=== PATIENT | female | born 1965 | race Caucasian/White ===

== ENCOUNTER 2022-10-08 14:31 | Outpatient (CLI) | payer BC | END 2022-10-08 14:32 | disposition home or self-care (01) | LOC: CSHMAMMO 14:31 | PROVIDERS: ATTEND Physician Assistant | DX: Z12.31 Encounter for screening mammogram for malignant neoplasm of breast (principal) | CPT/HCPCS: 77063; 77067 ==

== ENCOUNTER 2023-08-16 21:17 | Inpatient (IN) | payer BC ==
[2023-08-16] MEDS ORDERED: Benzonatate 100 MG CAP ONE (22:04)
[2023-08-16] MEDS ORDERED: Acetaminophen 500 MG TAB ONE (22:04)
[2023-08-16] MEDS ORDERED: Dexamethasone 10 MG/ML VIAL ONE (22:04)
[2023-08-16] MEDS ORDERED: Ketorolac Tromethamine 30 MG (1 mL) VIAL ONE (22:04)
[2023-08-16] MEDS ORDERED: Ipratropium/Albuterol 3 ML NEB ONE ×2 (22:06→23:26)
[2023-08-16 23:04] LABS: #Monocytes 0.6 10x3/uL (0.0-1.1); #Neutrophils 5.1 10x3/uL (1.5-8.4); %Basophils 0.3 % (0.0-2.0); %Eosinophils 0.1 % (0.0-6.0); %Lymphocytes 40.9 % (18.0-47.0); %Neutrophils 52.5 % (40.0-75.0); Hematocrit 36.4 % (34.9-44.5); Hemoglobin 12.1 g/dL (12.0-15.5); Mean Corpuscular HGB CONC 33.2 g/dL (32.0-36.0); Mean Corpuscular Hemoglobin 29.1 pg (27.0-33.0); Mean Corpuscular Volume 87.5 fl (81.6-98.3); Mean Platelet Volume 8.4 fl (7.4-10.4); Platelet Count 602 10x3/uL (150-450); RBC Distribution Width 14.6 % (11.5-14.5); Red Blood Cell (RBC) Count 4.16 10x6/uL (3.90-5.03); White Blood Cell (WBC) Count 9.7 10x3/uL (3.5-10.5)
[2023-08-16 23:11] LABS: Troponin I Less than 0.010 ng/mL (< 0.028)
[2023-08-16 23:12] LABS: AST (SGOT) 17 U/L (5-34); Albumin 3.7 g/dL (3.5-5.0); Alkaline Phosphatase 82 U/L (40-110); Anion Gap 15 mmol/L (10-20); BUN (Urea Nitrogen) 8 mg/dL (9.8-20.1); Bilirubin, Total 0.4 mg/dL (0.2-1.2); Calc. Creatinine Clearance 0 mL/min (70-130); Calcium 8.9 mg/dL (7.8-10.44); Carbon Dioxide 28 mmol/L (22-29); Chloride 99 mmol/L (98-107); Estimated GFR 87; Globulin 3.5 g/dL (2.4-3.5); Glucose 131 mg/dL (70-105); Potassium 4.3 mmol/L (3.5-5.1); Sodium 138 mmol/L (136-145)
[2023-08-16 23:13] LABS: ALT (SGPT) 16 U/L (8-55); Lipase 30 U/L (8-78); Protein, Total 7.2 g/dL (6.0-8.3)
[2023-08-16] MEDS ORDERED: Albuterol 2.5 MG (3 mL) NEB ONE (23:29)
[2023-08-16 23:40] LABS: SARS-CoV-2 NAA Rapid Test Not Detected (NotDetected)
[2023-08-17] MEDS ORDERED: cefTRIAXone (ROCEPHIN) 2 GM VIAL ONE (00:23)
[2023-08-17] MEDS ORDERED: Azithromycin 500 MG VIAL ONE (00:23)
[2023-08-17] MEDS ORDERED: Glucagon 1 MG/ML KIT IM PRN (00:58)
[2023-08-17] MEDS ORDERED: Dextrose 50% Abboject 50 ML SYRINGE SLOW IVP PRN (00:58)
[2023-08-17] MEDS ORDERED: HumaLOG 300 UNITS/3 ML VIAL SC PRN (00:58)
[2023-08-17] MEDS ORDERED: Dextrose 5% in Water 1,000 ML IV PRN (00:58)
[2023-08-17] MEDS ORDERED: Ondansetron PF 4 MG/2 ML Vial ONE (01:47)
[2023-08-17] MEDS ORDERED: Ketorolac Tromethamine 30 MG (1 mL) VIAL ONE (01:48)
[2023-08-17 03:33] LABS: #Monocytes 0.1 10x3/uL (0.0-1.1); #Neutrophils 5.7 10x3/uL (1.5-8.4); %Basophils 0.2 % (0.0-2.0); %Lymphocytes 10.8 % (18.0-47.0); %Monocytes 0.9 % (0.0-10.0); %Neutrophils 87.8 % (40.0-75.0); Hematocrit 34.2 % (34.9-44.5); Hemoglobin 11.3 g/dL (12.0-15.5); Mean Corpuscular Hemoglobin 28.9 pg (27.0-33.0); Mean Corpuscular Volume 87.5 fl (81.6-98.3); Mean Platelet Volume 8.4 fl (7.4-10.4); Platelet Count 588 10x3/uL (150-450); Red Blood Cell (RBC) Count 3.91 10x6/uL (3.90-5.03); White Blood Cell (WBC) Count 6.5 10x3/uL (3.5-10.5)
[2023-08-17 03:38] LABS: Clarity Clear (Clear)
[2023-08-17 03:39] LABS: Bilirubin Negative (Negative); Blood, Urine Negative (Negative); Glucose, Urine (Dipstick) Negative (Negative); Ketone, Urine Negative (Negative); Leukocyte Negative (Negative); Nitrite Negative (Negative); Protein, Urine (Dipstick) 100 mg/dl (Neg-Trace); Urobilinogen Normal mg/dL (Less than 2)
[2023-08-17 03:41] LABS: Bacteria/HPF Rare-Few HPF (None Seen); CAUTI Indications for Culture Dysuria,urgency,freq; RBC/HPF 0-3 HPF (0-3); Squamous Epithelial 0-3 HPF (0-3); WBC/HPF 0-3 HPF (0-3)
[2023-08-17 03:42] LABS: Urine Culture Reflex No No
[2023-08-17 03:44] LABS: Anion Gap 17 mmol/L (10-20); BUN (Urea Nitrogen) 9 mg/dL (9.8-20.1); Calc. Creatinine Clearance 0 mL/min (70-130); Calcium 8.5 mg/dL (7.8-10.44); Carbon Dioxide 23 mmol/L (22-29); Chloride 103 mmol/L (98-107); Estimated GFR 93; Glucose 203 mg/dL (70-105); Magnesium 1.8 mg/dL (1.6-2.6); Potassium 3.9 mmol/L (3.5-5.1); Sodium 139 mmol/L (136-145)
[2023-08-17] MEDS ORDERED: Morphine 2 MG/ML VIAL SLOW IVP SCH (04:00)
[2023-08-17] MEDS: Sodium Chloride 0.9% 1,000 ML IV SCH (04:00)
[2023-08-17 04:54] VITALS: BMI 46.6
[2023-08-17] MEDS ORDERED: FLU VACC QS2023-24(6MOS UP)/PF 60 MCG/0.5 ML SYRINGE IM ONE (09:00)
[2023-08-17] MEDS: Enoxaparin 40 MG (0.4 mL) SYRINGE SC SCH (09:59)
[2023-08-17] MEDS: metFORMIN 500 MG TAB PO SCH ×3 (09:59→21:53)
[2023-08-17] MEDS: Lantus 1000 UNITS/10 ML VIAL SC SCH (10:00)
[2023-08-17] MEDS: traMADol HCl 50 MG TAB PO PRN ×3 (10:42→23:59)
[2023-08-17] MEDS: Promethazine HCl 12.5 MG in Sodium Chloride 0.9% 50 ML IVPB PRN (10:46)
[2023-08-17] MEDS: Benzonatate 100 MG CAP PO PRN (16:20)
[2023-08-17] MEDS: Albuterol 2.5 MG (3 mL) NEB NEB PRN (20:45)
[2023-08-17] MEDS: QUEtiapine 25 MG TAB PO SCH (21:53)
[2023-08-17] MEDS: Clopidogrel Bisulfate 75 MG TAB PO SCH (21:53)
[2023-08-17] MEDS: Levothyroxine Sodium 100 MCG TAB PO SCH (21:53)
[2023-08-17] MEDS: Venlafaxine HCl XR 75 MG CAP PO SCH (21:53)
[2023-08-17] MEDS: Atorvastatin Calcium 40 MG TAB PO SCH (21:53)
[2023-08-17] MEDS: Aripiprazole 10 MG TAB PO SCH (21:54)
[2023-08-17] MEDS: cefTRIAXone\\ROCEPHIN 2 GM in Sodium Chloride 0.9% 100 ML IVPB SCH (23:58)
[2023-08-18] MEDS: Azithromycin 500 MG in Sodium Chloride 0.9% 250 ML 250 ML IVPB SCH (00:53)
[2023-08-18] MEDS: Benzonatate 100 MG CAP PO PRN ×3 (00:53→15:14)
[2023-08-18 04:56] LABS: #Monocytes 0.8 10x3/uL (0.0-1.1); #Neutrophils 4.5 10x3/uL (1.5-8.4); %Basophils 0.2 % (0.0-2.0); %Eosinophils 0.2 % (0.0-6.0); %Lymphocytes 41.4 % (18.0-47.0); %Monocytes 8.7 % (0.0-10.0); %Neutrophils 49.1 % (40.0-75.0); Hematocrit 30.3 % (34.9-44.5); Mean Corpuscular Hemoglobin 29.6 pg (27.0-33.0); Mean Corpuscular Volume 89.6 fl (81.6-98.3); Mean Platelet Volume 8.4 fl (7.4-10.4); Platelet Count 484 10x3/uL (150-450); RBC Distribution Width 15.6 % (11.5-14.5); Red Blood Cell (RBC) Count 3.38 10x6/uL (3.90-5.03); White Blood Cell (WBC) Count 9.2 10x3/uL (3.5-10.5)
[2023-08-18 05:03] LABS: Anion Gap 11 mmol/L (10-20); BUN (Urea Nitrogen) 9 mg/dL (9.8-20.1); Calc. Creatinine Clearance 158 mL/min (70-130); Calcium 8.1 mg/dL (7.8-10.44); Carbon Dioxide 27 mmol/L (22-29); Chloride 106 mmol/L (98-107); Estimated GFR 100; Glucose 90 mg/dL (70-105); Potassium 4.3 mmol/L (3.5-5.1); Sodium 140 mmol/L (136-145)
[2023-08-18] MEDS: metFORMIN 500 MG TAB PO SCH ×3 (08:49→20:05)
[2023-08-18] MEDS: Enoxaparin 40 MG (0.4 mL) SYRINGE SC SCH (08:49)
[2023-08-18] MEDS: traMADol HCl 50 MG TAB PO PRN ×2 (08:49→20:00)
[2023-08-18] MEDS: Lantus 1000 UNITS/10 ML VIAL SC SCH (08:51)
[2023-08-18] MEDS ORDERED: guaiFENesin ER 600 MG TAB PO SCH (14:00)
[2023-08-18] MEDS: Acetaminophen 325 MG TAB PO PRN (15:14)
[2023-08-18] MEDS: Sodium Chloride 0.9% 1,000 ML IV SCH ×2 (15:16)
[2023-08-18] MEDS: Promethazine HCl 12.5 MG in Sodium Chloride 0.9% 50 ML IVPB PRN (16:11)
[2023-08-18] MEDS: Ondansetron PF 4 MG/2 ML Vial IVP PRN (18:30)
[2023-08-18] MEDS: Levothyroxine Sodium 100 MCG TAB PO SCH (20:04)
[2023-08-18] MEDS: Clopidogrel Bisulfate 75 MG TAB PO SCH (20:04)
[2023-08-18] MEDS: Atorvastatin Calcium 40 MG TAB PO SCH (20:04)
[2023-08-18] MEDS: Venlafaxine HCl XR 75 MG CAP PO SCH (20:04)
[2023-08-18] MEDS: QUEtiapine 25 MG TAB PO SCH (20:04)
[2023-08-18] MEDS: Aripiprazole 10 MG TAB PO SCH (20:05)
[2023-08-18] MEDS ORDERED: Diazepam 5 MG TAB PO SCH (20:15)
[2023-08-18] MEDS: cefTRIAXone\\ROCEPHIN 2 GM in Sodium Chloride 0.9% 100 ML IVPB SCH (23:40)
[2023-08-18] MEDS: guaiFENesin ER 600 MG TAB PO SCH (23:41)
[2023-08-19] MEDS: Azithromycin 500 MG in Sodium Chloride 0.9% 250 ML 250 ML IVPB SCH ×2 (00:03→22:52)
[2023-08-19] MEDS: Ondansetron PF 4 MG/2 ML Vial IVP PRN ×3 (00:03→18:12)
[2023-08-19] MEDS: Lantus 1000 UNITS/10 ML VIAL SC SCH (09:00)
[2023-08-19] MEDS: traMADol HCl 50 MG TAB PO PRN (10:43)
[2023-08-19] MEDS: guaiFENesin ER 600 MG TAB PO SCH ×2 (10:43→22:44)
[2023-08-19] MEDS: Benzonatate 100 MG CAP PO PRN ×2 (10:45→22:43)
[2023-08-19] MEDS: metFORMIN 500 MG TAB PO SCH ×3 (10:45→20:27)
[2023-08-19] MEDS: Enoxaparin 40 MG (0.4 mL) SYRINGE SC SCH (10:45)
[2023-08-19] MEDS: Sodium Chloride 0.9% 1,000 ML IV SCH ×2 (14:00→22:52)
[2023-08-19] MEDS: Albuterol 2.5 MG (3 mL) NEB NEB PRN (14:50)
[2023-08-19] MEDS: Atorvastatin Calcium 40 MG TAB PO SCH (20:26)
[2023-08-19] MEDS: QUEtiapine 25 MG TAB PO SCH (20:27)
[2023-08-19] MEDS: Diazepam 5 MG TAB PO PRN (20:27)
[2023-08-19] MEDS: Clopidogrel Bisulfate 75 MG TAB PO SCH (20:27)
[2023-08-19] MEDS: Venlafaxine HCl XR 75 MG CAP PO SCH (20:27)
[2023-08-19] MEDS: Levothyroxine Sodium 100 MCG TAB PO SCH (20:27)
[2023-08-19] MEDS: Promethazine HCl 12.5 MG in Sodium Chloride 0.9% 50 ML IVPB PRN (21:31)
[2023-08-19] MEDS: Aripiprazole 10 MG TAB PO SCH (22:43)
[2023-08-20] MEDS: cefTRIAXone\\ROCEPHIN 2 GM in Sodium Chloride 0.9% 100 ML IVPB SCH (00:21)
[2023-08-20 04:01] LABS: #Basophils 0.1 10x3/uL (0.0-0.2); #Eosinphils 0.1 10x3/uL (0.0-0.5); #Monocytes 0.7 10x3/uL (0.0-1.1); #Neutrophils 3.1 10x3/uL (1.5-8.4); %Basophils 0.7 % (0.0-2.0); %Eosinophils 0.9 % (0.0-6.0); %Lymphocytes 52.7 % (18.0-47.0); %Monocytes 8.1 % (0.0-10.0); %Neutrophils 37.5 % (40.0-75.0); Hematocrit 32.7 % (34.9-44.5); Hemoglobin 10.4 g/dL (12.0-15.5); Mean Corpuscular HGB CONC 31.8 g/dL (32.0-36.0); Mean Corpuscular Hemoglobin 29.5 pg (27.0-33.0); Mean Corpuscular Volume 92.9 fl (81.6-98.3); Mean Platelet Volume 8.4 fl (7.4-10.4); Platelet Count 457 10x3/uL (150-450); RBC Distribution Width 15.4 % (11.5-14.5); Red Blood Cell (RBC) Count 3.52 10x6/uL (3.90-5.03); White Blood Cell (WBC) Count 8.2 10x3/uL (3.5-10.5)
[2023-08-20 04:17] LABS: Anion Gap 10 mmol/L (10-20); BUN (Urea Nitrogen) 5 mg/dL (9.8-20.1); Calc. Creatinine Clearance 147 mL/min (70-130); Calcium 8.2 mg/dL (7.8-10.44); Carbon Dioxide 28 mmol/L (22-29); Chloride 107 mmol/L (98-107); Estimated GFR 95; Glucose 122 mg/dL (70-105); Magnesium 1.5 mg/dL (1.6-2.6); Potassium 3.7 mmol/L (3.5-5.1); Sodium 141 mmol/L (136-145)
[2023-08-20] MEDS: metFORMIN 500 MG TAB PO SCH ×3 (08:41→21:47)
[2023-08-20] MEDS: guaiFENesin ER 600 MG TAB PO SCH ×2 (08:41→21:46)
[2023-08-20] MEDS: Enoxaparin 40 MG (0.4 mL) SYRINGE SC SCH (08:42)
[2023-08-20] MEDS: Benzonatate 100 MG CAP PO PRN (08:42)
[2023-08-20] MEDS: Lantus 1000 UNITS/10 ML VIAL SC SCH (08:54)
[2023-08-20] MEDS: Ondansetron PF 4 MG/2 ML Vial IVP PRN (13:02)
[2023-08-20] MEDS: traMADol HCl 50 MG TAB PO PRN (13:08)
[2023-08-20] MEDS ORDERED: Magnesium 2 GM/50 ML(in water) 2 GM in Premix 1 BAG IVPB SCH (14:00)
[2023-08-20] MEDS ORDERED: Magnesium Sulfate/D5W 1 GM in Premix 1 BAG IVPB SCH (15:00)
[2023-08-20] MEDS: Clopidogrel Bisulfate 75 MG TAB PO SCH (21:46)
[2023-08-20] MEDS: QUEtiapine 25 MG TAB PO SCH (21:46)
[2023-08-20] MEDS: Atorvastatin Calcium 40 MG TAB PO SCH (21:47)
[2023-08-20] MEDS: Venlafaxine HCl XR 75 MG CAP PO SCH (21:47)
[2023-08-20] MEDS: Aripiprazole 10 MG TAB PO SCH (21:47)
[2023-08-20] MEDS: Levothyroxine Sodium 100 MCG TAB PO SCH (21:48)
[2023-08-20] MEDS: Sodium Chloride 0.9% 1,000 ML IV SCH (22:38)
[2023-08-20] MEDS: Azithromycin 500 MG in Sodium Chloride 0.9% 250 ML 250 ML IVPB SCH (22:40)
[2023-08-21] MEDS: cefTRIAXone\\ROCEPHIN 2 GM in Sodium Chloride 0.9% 100 ML IVPB SCH ×2 (00:02→23:08)
[2023-08-21] MEDS: Amlodipine 5 MG TAB PO SCH (08:43)
[2023-08-21] MEDS: guaiFENesin ER 600 MG TAB PO SCH ×2 (08:43→20:10)
[2023-08-21] MEDS: metFORMIN 500 MG TAB PO SCH ×3 (08:43→20:09)
[2023-08-21] MEDS: Enoxaparin 40 MG (0.4 mL) SYRINGE SC SCH (08:44)
[2023-08-21] MEDS: Lantus 1000 UNITS/10 ML VIAL SC SCH (08:44)
[2023-08-21] MEDS: Benzonatate 100 MG CAP PO PRN ×2 (08:48→20:24)
[2023-08-21 09:07] LABS: #Basophils 0.1 10x3/uL (0.0-0.2); #Eosinphils 0.1 10x3/uL (0.0-0.5); #Monocytes 0.7 10x3/uL (0.0-1.1); %Basophils 0.7 % (0.0-2.0); %Eosinophils 1.3 % (0.0-6.0); %Lymphocytes 52.4 % (18.0-47.0); %Monocytes 8.9 % (0.0-10.0); %Neutrophils 36.5 % (40.0-75.0); Hemoglobin 10.7 g/dL (12.0-15.5); Mean Corpuscular HGB CONC 32.4 g/dL (32.0-36.0); Mean Corpuscular Hemoglobin 29.4 pg (27.0-33.0); Mean Corpuscular Volume 90.7 fl (81.6-98.3); Mean Platelet Volume 8.7 fl (7.4-10.4); Platelet Count 458 10x3/uL (150-450); RBC Distribution Width 15.3 % (11.5-14.5); Red Blood Cell (RBC) Count 3.64 10x6/uL (3.90-5.03); White Blood Cell (WBC) Count 8.3 10x3/uL (3.5-10.5)
[2023-08-21 09:33] LABS: Anion Gap 12 mmol/L (10-20); BUN (Urea Nitrogen) 4 mg/dL (9.8-20.1); Calc. Creatinine Clearance 165 mL/min (70-130); Calcium 8.2 mg/dL (7.8-10.44); Carbon Dioxide 27 mmol/L (22-29); Chloride 107 mmol/L (98-107); Estimated GFR 101; Glucose 102 mg/dL (70-105); Potassium 3.9 mmol/L (3.5-5.1); Sodium 142 mmol/L (136-145)
[2023-08-21] MEDS: Ondansetron PF 4 MG/2 ML Vial IVP PRN (09:38)
[2023-08-21] MEDS: traMADol HCl 50 MG TAB PO PRN (09:43)
[2023-08-21] MEDS: Promethazine HCl 12.5 MG in Sodium Chloride 0.9% 50 ML IVPB PRN ×2 (11:15→20:19)
[2023-08-21] MEDS: Diazepam 5 MG TAB PO PRN (16:06)
[2023-08-21] MEDS: Atorvastatin Calcium 40 MG TAB PO SCH (20:09)
[2023-08-21] MEDS: Clopidogrel Bisulfate 75 MG TAB PO SCH (20:09)
[2023-08-21] MEDS: Acetaminophen 325 MG TAB PO PRN (20:09)
[2023-08-21] MEDS: Levothyroxine Sodium 100 MCG TAB PO SCH (20:10)
[2023-08-21] MEDS: Venlafaxine HCl XR 75 MG CAP PO SCH (20:10)
[2023-08-21] MEDS: QUEtiapine 25 MG TAB PO SCH (20:10)
[2023-08-21] MEDS: Aripiprazole 10 MG TAB PO SCH (20:14)
[2023-08-21] MEDS: Sodium Chloride 0.9% 1,000 ML IV SCH (20:24)
[2023-08-22] MEDS: Azithromycin 500 MG in Sodium Chloride 0.9% 250 ML 250 ML IVPB SCH (00:28)
[2023-08-22 03:54] LABS: #Eosinphils 0.1 10x3/uL (0.0-0.5); #Monocytes 0.8 10x3/uL (0.0-1.1); #Neutrophils 3.9 10x3/uL (1.5-8.4); %Basophils 0.5 % (0.0-2.0); %Eosinophils 1.3 % (0.0-6.0); %Lymphocytes 44.2 % (18.0-47.0); %Neutrophils 44.9 % (40.0-75.0); Hematocrit 34.7 % (34.9-44.5); Hemoglobin 11.4 g/dL (12.0-15.5); Mean Corpuscular HGB CONC 32.9 g/dL (32.0-36.0); Mean Corpuscular Hemoglobin 30.2 pg (27.0-33.0); Mean Platelet Volume 8.6 fl (7.4-10.4); Platelet Count 439 10x3/uL (150-450); RBC Distribution Width 15.1 % (11.5-14.5); Red Blood Cell (RBC) Count 3.77 10x6/uL (3.90-5.03); White Blood Cell (WBC) Count 8.7 10x3/uL (3.5-10.5)
[2023-08-22 04:09] LABS: Anion Gap 9 mmol/L (10-20); BUN (Urea Nitrogen) 4 mg/dL (9.8-20.1); Calc. Creatinine Clearance 158 mL/min (70-130); Calcium 8.5 mg/dL (7.8-10.44); Carbon Dioxide 31 mmol/L (22-29); Chloride 107 mmol/L (98-107); Estimated GFR 100; Glucose 90 mg/dL (70-105); Potassium 3.8 mmol/L (3.5-5.1); Sodium 143 mmol/L (136-145)
[2023-08-22] MEDS: Enoxaparin 40 MG (0.4 mL) SYRINGE SC SCH (09:04)
[2023-08-22] MEDS: metFORMIN 500 MG TAB PO SCH ×2 (09:04→15:19)
[2023-08-22] MEDS: Amlodipine 5 MG TAB PO SCH (09:04)
[2023-08-22] MEDS: Lantus 1000 UNITS/10 ML VIAL SC SCH (09:04)
[2023-08-22] MEDS: Diazepam 5 MG TAB PO PRN (09:04)
[2023-08-22] MEDS: guaiFENesin ER 600 MG TAB PO SCH (09:04)
[2023-08-22 14:07] VITALS: BP 140/63; TEMP 97.7
== END 2023-08-22 16:57 | disposition home or self-care (01) | DRG 193 ==
LOC: CSHERS 21:17 → CSHTELE 08-17 00:10
PROVIDERS: ADMIT Family Medicine; ATTEND Internal Medicine
PROC: 5A09357 Assistance with Respiratory Ventilation, Less than 24 Consecutive Hours, Continuous Positive Airway Pressure (ICD-10-PCS; principal; 2023-08-17)
DX: J18.9 Pneumonia, unspecified organism (principal); J96.01 Acute respiratory failure with hypoxia; Z68.42 Body mass index [BMI] 45.0-49.9, adult; Z88.8 Allergy status to other drugs, medicaments and biological substances; Z79.899 Other long term (current) drug therapy; Z79.84 Long term (current) use of oral hypoglycemic drugs; E78.00 Pure hypercholesterolemia, unspecified; E11.9 Type 2 diabetes mellitus without complications; Z90.49 Acquired absence of other specified parts of digestive tract; F32.A Depression, unspecified; F17.210 Nicotine dependence, cigarettes, uncomplicated; G47.33 Obstructive sleep apnea (adult) (pediatric); E03.9 Hypothyroidism, unspecified; Z82.49 Family history of ischemic heart disease and other diseases of the circulatory system; Z11.52 Encounter for screening for COVID-19; E66.01 Morbid (severe) obesity due to excess calories; F39 Unspecified mood [affective] disorder; Z79.4 Long term (current) use of insulin
CPT/HCPCS: 36415; 36416; 71045; 80048; 80053; 81001; 83605; 83690; 83735; 83880; 84443; 84484; 85025; 85379; 87040; 87070; 87205; 90471; 90686; 93005; 94640; 94660; 94760; 94762; 96365; 96367; 96375; G0008; J0456; J0696; J1100; J1650; J1815; J1885; J2272; J2405; J2550; J3475; J3490; J7050; J7611; J7620

== ENCOUNTER 2023-09-20 12:53 | Outpatient (CLI) | payer BC | END 2023-09-20 12:54 | disposition home or self-care (01) | LOC: CSHRAD 12:53 | PROVIDERS: ATTEND Physician Assistant | DX: J18.9 Pneumonia, unspecified organism (principal) | CPT/HCPCS: 71046 ==